=== PATIENT | male | born 1975 | race Caucasian/White ===

== ENCOUNTER 2024-07-08 11:02 | Emergency (ER) | payer BC, SELFPAY ==
[2024-07-08 11:02] VITALS: BP 187/88; BP 194/99; PULSE 103; PULSE 105; RESP 16; TEMP 36.6; O2SAT 98; BMI 22.1
--- NOTE | 2024-07-08 11:42 | EX.ED.DYSGE1 ---
HPI <FLOWER Toth - Last Filed: 07/08/24 14:32> History of Present Illness Chief Complaint: Shortness of Breath Narrative Narrative: Patient presenting today with multiple vague complaints. He reports that he occasionally has a burning sensation to his forehead, this has been going on for a long time. He also had an episode of feeling short of breath this morning that he describes as not being able to take a deep breath, but also does admit to feeling anxious. He is no longer feeling short of breath. He denies any history of blood clots or recent surgery/procedures/travel/immobilization. He has had intermittent throat and stomach irritation for quite some time. He is eating and drinking normally, he has had no nausea, vomiting, or diarrhea. He is having normal bowel movements. He does admit to daily tobacco and alcohol use. He does drink about a 12 pack/day. His last drink was last night, he does admit to being shaky. He does not follow with a PCP regularly but does have one that he can see. He denies any chronic medical conditions. PFSH <FLOWER Toth - Last Filed: 07/08/24 14:32> PFSH Allergy/AdvReac Type Severity Reaction Status Date / Time Penicillins (PCN) Allergy UNKNOWN Verified 07/08/24 11:02 Social History Smoking Status: Current every day smoker tobacco type: cigarettes ROS <FLOWER Toth - Last Filed: 07/08/24 14:32> ROS ED Constitutional Constitutional ED: Denies chills or fever(s) ENT ENT ED: Reports sore throat Cardiovascular Cardiovascular: Denies chest pain or palpitations Respiratory/Chest Respiratory/Chest: Reports dyspnea; Denies cough Gastrointestinal Gastrointestinal: Reports abdominal pain; Denies nausea or vomiting Genitourinary Genitourinary ED: Denies dysuria, hematuria or urinary urgency Musculoskeletal Musculoskeletal: Denies arthralgias or myalgias Integumentary Denies rash Neurologic Neurologic: Reports paresthesias; Denies weakness Psychiatric Psychiatric: Reports anxiety and depression; Denies suicidal ideation or suicidal thoughts EXAM <FLOWER Toth - Last Filed: 07/08/24 14:32> Physical Exam Const Vital Signs: 07/08/24 11:02 07/08/24 11:02 07/08/24 11:51 Temperature 97.9 F Temperature Source Temporal Pulse Rate 103 H 105 H Respiratory Rate 16 16 Respiratory Effort Normal Respiratory Depth Normal Respiratory Pattern Normal Blood Pressure 187/88 H 194/99 H Blood Pressure Mean 121 130 Pulse Ox 98 98 Oxygen Delivery Method Room Air Room Air 07/08/24 11:56 Temperature 98.4 F Temperature Source Pulse Rate 97 Respiratory Rate 20 H Respiratory Effort Respiratory Depth Respiratory Pattern Blood Pressure 141/89 H Blood Pressure Mean 106 Pulse Ox 100 Oxygen Delivery Method Positive well nourished, well developed and no apparent distress General Appearance ED: well developed HEENT Reports normocephalic and head/scalp atraumatic HEENT Narrative: Posterior pharynx is clear, uvula midline, no trismus, no drooling, no tonsillar exudate Mouth ED: Yes moist mucous membranes normal Eyes PERRL and EOMs intact bilaterally Neck full ROM and supple Chest Wall inspection of chest normal Resp normal respiratory effort and clear to auscultation bilaterally Cardio regular rate and regular rhythm GI soft to palpation, non-tender, non-distended and no masses Back/Spine normal ROM and normal to inspection Extremity normal to inspection and full ROM Neuro oriented x3, CN's II-XII intact bilaterally, moves all extremities, no focal motor deficits and no sensory deficits noted Sensorium / Orientation: awake and alert Psych mental status grossly normal and thought process normal Skin no rashes or lesions noted and no wounds <Dr. Subhash Deshpande MD - Last Filed: 07/08/24 12:09> Physical Exam Const Vital Signs: 07/08/24 11:02 07/08/24 11:02 07/08/24 11:51 Temperature 97.9 F Temperature Source Temporal Pulse Rate 103 H 105 H Respiratory Rate 16 16 Respiratory Effort Normal Respiratory Depth Normal Respiratory Pattern Normal Blood Pressure 187/88 H 194/99 H Blood Pressure Mean 121 130 Pulse Ox 98 98 Oxygen Delivery Method Room Air Room Air 07/08/24 11:56 Temperature 98.4 F Temperature Source Pulse Rate 97 Respiratory Rate 20 H Respiratory Effort Respiratory Depth Respiratory Pattern Blood Pressure 141/89 H Blood Pressure Mean 106 Pulse Ox 100 Oxygen Delivery Method MDM <FLOWER Toth - Last Filed: 07/08/24 14:32> [facility] MDM Narrative Medical decision making narrative: Patient presenting today due to multiple vague complaints. On exam, he is slightly tachycardic, hypertensive, and tremorous. He did admit to a history of alcohol use and last drink yesterday. I did offer detox, he is not interested at this time. He would like to follow-up with his PCP. I do think that his tobacco and alcohol use is contributing to his abdominal and throat irritation. No signs of streptococcal pharyngitis on exam with a Centor score of 0. He has a soft nonsurgical abdomen, he has had no nausea or vomiting or stool changes. I do not feel that any laboratory work is indicated at this time. He is nontoxic-appearing. I did provide resources including 180 and encouraged him to follow-up closely with his PCP. He was cautioned against stopping drinking on his own all at once. He initially complained about feeling short of breath but reports that that has subsided since being here in the ED, his O2 saturation is 98% on room air. He did admit that he felt anxious this morning. He has no HI, SI, or hallucinations. Tobacco and alcohol cessation were encouraged, patient discharged home in stable condition. I have personally performed a face to face assessment of the patient and have reviewed the SHADE Note. I performed a substantive portion of the visit including all aspects of the following. My nguyen findings include: History is remarkable for consumption of 12 pack/day. His last drink was yesterday. He states he does not feel well. He has multitude of minor symptoms. He complains of palpitations, tremors, feeling blah. He was offered detox by the physician research assistant as well as me. Patient was informed that he my concern is he is going through mild/early alcohol withdrawal. He is concerned that he does not have enough time off. He was informed that if he submitted for a medical reason that he should not lose his job. He also was informed that he could call his boss to see if this would affect his employment. He declined inpatient therapy. He was given resources for outpatient therapy. He was told if he decides to stop drinking on his own recommend decreasing the amount of alcohol consumption by 1 beer a day. He was instructed specifically not to discontinue all at once. He denies black or maroon-colored stool. Has dark urine. He denies cardiac or respiratory symptoms. Exam is remarkable for tachycardia. Reflexes are brisk. Does not have clonus at the ankles. He has no Babinski sign. He is alert oriented x 3. There is no dysmetria. Motor or sensory intact. Heart is regular. There is no murmur, gallop or rub. Lungs are clear to auscultation. Abdomen is benign. He does not appear jaundiced. Conjunctive is pink. Medical Decision Making patient was offered inpatient detox and given resources for outpatient detox. He informed me that he would follow-up with his doctor. Since patient and my professional opinion has capacity understands the risk benefits of inpatient therapy versus outpatient therapy versus not doing anything. He was discharged to home. Other additions or changes: None <Dr. Subhash Deshpande MD - Last Filed: 07/08/24 12:09> [facility] MDM Narrative Medical decision making narrative: Patient presenting today due to multiple vague complaints. On exam, he is slightly tachycardic, hypertensive, and tremorous. He did admit to a history of alcohol use and last drink yesterday. I did offer detox, he is not interested at this time. He would like to follow-up with his PCP. I do think that his tobacco and alcohol use is contributing to his abdominal and throat irritation. He has a soft nonsurgical abdomen, he has had no nausea or vomiting or stool changes. I do not feel that any laboratory work is indicated at this time. He is nontoxic-appearing. I did provide resources including 180 and encouraged him to follow-up closely with his PCP. He initially complained about feeling short of breath but reports that that has subsided since being here in the ED, his O2 saturation is 98% on room air. He did admit that he felt anxious this morning. He has no HI, SI, or hallucinations. I have personally performed a face to face assessment of the patient and have reviewed the SHADE Note. I performed a substantive portion of the visit including all aspects of the following. My nguyen findings include: History is remarkable for consumption of 12 pack/day. His last drink was yesterday. He states he does not feel well. He has multitude of minor symptoms. He complains of palpitations, tremors, feeling blah. He was offered detox by the physician research assistant as well as me. Patient was informed that he my concern is he is going through mild/early alcohol withdrawal. He is concerned that he does not have enough time off. He was informed that if he submitted for a medical reason that he should not lose his job. He also was informed that he could call his boss to see if this would affect his employment. He declined inpatient therapy. He was given resources for outpatient therapy. He was told if he decides to stop drinking on his own recommend decreasing the amount of alcohol consumption by 1 beer a day. He was instructed specifically not to discontinue all at once. He denies black or maroon-colored stool. Has dark urine. He denies cardiac or respiratory symptoms. Exam is remarkable for tachycardia. Reflexes are brisk. Does not have clonus at the ankles. He has no Babinski sign. He is alert oriented x 3. There is no dysmetria. Motor or sensory intact. Heart is regular. There is no murmur, gallop or rub. Lungs are clear to auscultation. Abdomen is benign. He does not appear jaundiced. Conjunctive is pink. Medical Decision Making patient was offered inpatient detox and given resources for outpatient detox. He informed me that he would follow-up with his doctor. Since patient and my professional opinion has capacity understands the risk benefits of inpatient therapy versus outpatient therapy versus not doing anything. He was discharged to home. Other additions or changes: None Discharge Plan Triage Chief Complaint: Shortness of Breath ED Midlevel Provider: Queta Moore ED Provider: Subhash Deshpande Dx/Rx/DC Orders Clinical Impression: Anxiety, Abdominal discomfort, Alcohol use disorder, Sinus tachycardia Instructions: ED Anxiety Reaction, ED Alcohol Abuse Stand Alone Forms: ED Work / School Excuse Primary Care Provider: Palak Mayen Referrals: Palak Mayen DO [Primary Care Provider] - 3-5 Days Activity Restrictions/Additional Instructions: Please follow-up with your PCP. You can also follow-up with [facility] at [phone], they provide numerous addiction resources. Print Language: Bengali Disposition Disposition: Home, Self Care Discharge Date/Time: 07/08/24 11:59 Capacity <Dr. Subhash Deshpande MD - Last Filed: 07/08/24 12:09> Capacity Assessment Tool Patient lacks Decision Making Capacity: unable to understand, reason and deliberate health related choices: No Risk to self and or others?: No Risk of leaving the patient care unit and or hospital?: No
[2024-07-08 11:56] VITALS: BP 141/89; PULSE 97; RESP 20; TEMP 36.9; O2SAT 100
== END 2024-07-08 11:59 | disposition home or self-care (01) ==
LOC: ED 11:55
PROVIDERS: Emergency Provider Emergency Medicine; PCP Internal Medicine; Visit Provider Emergency Medicine
DX: F41.9 Anxiety disorder, unspecified (principal); F17.210 Nicotine dependence, cigarettes, uncomplicated; F10.90 Alcohol use, unspecified, uncomplicated; R00.0 Tachycardia, unspecified; R10.9 Unspecified abdominal pain; F32.A Depression, unspecified
CPT/HCPCS: 99282

== ENCOUNTER → 2024-09-21 | Outpatient (CLI) | payer BC, SELFPAY ==
[2024-09-21 08:42] LABS: Bacteria 0 SEEN /hpf (None Seen); Mucous, Urine 0 SEEN /hpf (<or=2+); Red Blood Cells-Urine 0 SEEN /hpf (0-5); Squamous Epithelial Cells - UA 0 SEEN /hpf (0-5)
[2024-09-21 08:57] LABS: Absolute Lymphocyte Count 1.24 X10^3/uL (0.83-4.51); Absolute Neutrophil Count 1.4 X10^3/uL (2.0-7.7); Basophil# 0.07 X10^3/uL; Basophil% 1.8 % (0-1); Eosinophil# 0.37 X10^3/uL; Eosinophils% 9.6 % (0-5); Hematocrit 37.7 % (40-54); Hemoglobin 13.3 g/dL (13.0-16.5); Lymphocyte # 1.24 X10^3/ul (0.83-4.51); Lymphocyte % 32.1 % (19-41); Mean Corp Hgb Conc 35.3 g/dL (32-36); Mean Corpuscular Volume 99.2 fL (80-94); Mean Platelet Vol. 8.5 fl (6.2-12.0); Monocyte# 0.73 X10^3/uL; Monocyte% 18.9 % (0-10); NRBC Flagged by Analyzer 0 % (0-5); Neutrophil # 1.44 X10^3/uL (2.7-7.7); Neutrophil % 37.3 % (47-70); Platelet Count 289 K/mm3 (150-450); RBC Distribution Width SD 44.1 fl (35.1-43.9); White Blood Count 3.9 K/mm3 (4.4-11.0)
[2024-09-21 08:58] LABS: Color, Urine Straw (Yellow); Glucose, Dipstick Normal (Normal); Ketone-Dipstick Negative (Negative); Leukocyte Esterase-Dipstick Negative /ul (Negative); Nitrite-Dipstick Negative (Negative); Occult Blood-Urine Negative /ul (Negative); Protein-Dipstick 15 mg/dl (Negative); Urine Bilirubin Dipstick Negative (Negative); Urine Clarity Clear (Clear); Urine Urobilinogen Normal (Normal); Urine pH 6.5 (5.0 - 8.0)
[2024-09-21 09:05] LABS: White Blood Cells 0-5 SEEN /hpf (0-5)
[2024-09-21 09:55] LABS: Microalbumin,Random Urine 41.7 mg/L (NO RANGE EST.); Microalbumin:Creatinine Ratio 108.6 mg/g CRE (<30 mg/g CRE)
[2024-09-21 10:27] LABS: ALB/GLOB Ratio 1.1 RATIO (0.9-2.4); AST(SGOT) 62 U/L (15-37); Alanine Aminotransfer ALT/SGPT 70 U/L (16-61); Albumin, Serum 4.2 g/dL (3.2-5.0); Alkaline Phosphatase 54 U/L (45-117); Anion Gap 10 (5-15); BUN 7 mg/dL (7-18); BUN/Creat Ratio 10.9 RATIO (10-20); Calcium,Total 8.9 mg/dL (8.5-10.1); Chloride 94 mmol/L (98-107); Cholesterol 256 mg/dL (200); Creatinine, Serum 0.64 mg/dL (0.70-1.30); EST Glomerular Filtration Rate 140 mL/min (>60); Est Glom Filt Rate - Afr Amer 169 mL/min (>60); Globulin 3.7 g/dL (2.2-4.2); Glucose 97 mg/dL (74-106); High Density Lipoprotein 133 mg/dL; Potassium 4.3 mmol/L (3.5-5.1); Protein, Total 7.9 g/dL (6.4-8.2); Sodium Level 129 mmol/L (136-145); Thyroid Stim Hormone (TSH) 0.716 uIU/mL (0.358-3.740); Triglycerides 39 mg/dL; Very Low Density Lipoprotein 8 mg/dL (5-40)
== END | disposition home or self-care (01) ==
LOC: LAB 08:36
PROVIDERS: PCP Internal Medicine; Referring Provider Internal Medicine; Visit Provider Internal Medicine
DX: I10 Essential (primary) hypertension (principal); F41.9 Anxiety disorder, unspecified
CPT/HCPCS: 36415; 80053; 80061; 81001; 82043; 82570; 84443; 85025